=== PATIENT | female | born 1970 | race Caucasian/White ===

== ENCOUNTER 2020-03-12 15:34 | Emergency (ER) | payer SELFPAY ==
[2020-03-12 15:40] VITALS: BP 140/89; PULSE 85; RESP 18; TEMP 37.6; O2SAT 98
--- NOTE | 2020-03-12 15:43 | ED.GENADULT ---
HPI - General Adult General Chief complaint: Dental/Oral Stated complaint: tooth pain Time Seen by Provider: 03/12/20 15:45 Source: patient and RN notes reviewed Mode of arrival: ambulatory Limitations: no limitations History of Present Illness HPI narrative: This is a 50 years old female presents to the office for an evaluation of dental pain since yesterday morning. She admits to bad teeth as result from her methimazole. She does not have a dentist because she lost her job; however she aware of dental school and will look into it. Related Data Home Medications Medication Instructions Recorded Confirmed amitriptyline 03/12/20 amlodipine 03/12/20 methimazole 03/12/20 Allergies Allergy/AdvReac Type Severity Reaction Status Date / Time codeine Allergy Unknown NAUSEA Verified 10/03/18 18:25 Review of Systems Review of Systems: Narrative: CONSTITUTIONAL: Denies fever or feeling ill. Reports has not sleep for the last 32hours due to pain ENT:Reports dental pain (ice cold water helps controlled pain). CARDIOVASCULAR: Denies chest pain RESPIRATORY: Denies dyspnea, cough GASTROINTESTINAL: Denies abdominal pain, nausea, vomiting SKIN: Denies rash MUSCULOSKELETAL: Denies acute back pain NEUROLOGIC: Denies lightheaded All other systems reviewed are negative, except as documented in HPI. [facility] Past Medical History Medical History (Updated 03/12/20 @ 16:00 by ZOHRA Ren) Graves' disease History of anxiety HTN (hypertension) Hx of migraine headaches Surgical History Surgical History Hx of cholecystectomy Comments At time of signature, I agree with nursing past medical, surgical, social and family history. There is no relevant family history pertinent to the presenting complaint. Exam Narrative: Exam Narrative: GENERAL: This is a well-nourished, well-developed patient, in no apparent distress. EYES: Sclera and conjunctivae normal ENT: External ears normal. Nose and lips normal. Airway patent.The tooth in question is very carious and the gum is swollen and tender around it. There is no facial swelling, cervical or submandibular lymphadenopathy. CARDIOVASCULAR: Regular rate and rhythm without murmurs, gallops, or rubs. RESPIRATORY: Clear to auscultation. Breath sounds equal bilaterally. No wheezes, rales, or rhonchi. GASTROINTESTINAL: Abdomen soft, non-tender, nondistended. Bowel sounds are active. No hepato-splenomegaly, or palpable masses. No guarding. SKIN: warm, intact with no suspicious lesions or rash, good texture and turgor. NEURO: awake, alert, and oriented to person, place and time. There were no obvious focal neurologic abnormalities. Course Vital Signs Vital signs: Vital Signs Temperature 99.6 F 03/12/20 15:40 Pulse Rate 85 03/12/20 15:40 Respiratory Rate 18 03/12/20 15:40 Blood Pressure 140/89 03/12/20 15:40 Pulse Oximetry 98 03/12/20 15:40 Temperature 99.6 F 03/12/20 15:40 Pulse Rate 85 03/12/20 15:40 Respiratory Rate 18 03/12/20 15:40 Blood Pressure 140/89 03/12/20 15:40 Pulse Oximetry 98 03/12/20 15:40 Medical Decision Making MDM Narrative Medical decision making narrative: Elevated BP noted: patient is informed that they may have pre-hypertension or hypertension based on a blood pressure reading in the department. I recommend the patient call the primary care provider listed on their discharge instructions or a physician of their choice this week to arrange follow-up for further evaluation of possible pre-hypertension or hypertension within 1-2week. Discharge instructions reviewed with patient, as well as provided in writing per nursing staff. The instructions also include specific and strict return/GO TO THE ER as well as f/u information. All questions have been answered, and the patient deny any further questions with discharge and discharge plan. Differential Diagnosis Di
== END 2020-03-12 16:00 | disposition home or self-care (01) ==
PROVIDERS: Emergency Provider Nurse Practitioner; PCP Family Medicine
DX: K02.9 Dental caries, unspecified (principal); I10 Essential (primary) hypertension
CPT/HCPCS: 99213; G0463

== ENCOUNTER 2021-09-06 15:04 | Emergency (ER) | payer SELFPAY ==
[2021-09-06 15:47] VITALS: BP 133/70; PULSE 85; RESP 18; TEMP 37; O2SAT 94
--- NOTE | 2021-09-06 17:14 | ED.URI ---
HPI - URI/Sore Throat General Chief Complaint: Upper Respiratory Infection Stated Complaint: nausea diarrhea cough sob fever Source: patient and RN notes reviewed Mode of arrival: ambulatory History of Present Illness HPI Narrative: This is a 51-year-old female who presented to urgent care with complaints of diarrhea, shortness of breath, chest congestion, fever of 101 that started on Monday. Patient notes that she took ibuprofen and Tylenol for her fever. The patient denies CP, palpitation, extremity numbness, lightheadedness, dizziness, constipation, diarrhea, chills, or fever. Patient is a smoker she does not have any inhalers at home Related Data Home Medications Medication Instructions Recorded Confirmed amitriptyline 10 mg PO DAILY 03/12/20 09/06/21 amlodipine 10 mg PO DAILY 03/12/20 09/06/21 methimazole 10 mg PO DAILY 03/12/20 09/06/21 Allergies Allergy/AdvReac Type Severity Reaction Status Date / Time codeine Allergy Unknown NAUSEA Verified 10/03/18 18:25 Review of Systems Review of Systems: A 14 organ system Review of Systems was performed and pertinent positives included in the HPI, otherwise remaining ROS is negative. [facility] Past Medical History Medical History Graves' disease History of anxiety HTN (hypertension) Hx of migraine headaches Surgical History Surgical History Hx of cholecystectomy Family History Family History (Updated 09/06/21 @ 17:16 by ADA Jensen) Other Family history non-contributory Exam Narrative: GENERAL: This is a well-nourished, well-developed patient, in no apparent distress. HEAD: normocephalic, atraumatic. EYES: PERRL. Sclera clear/white. Vision is grossly intact. EARS: External ears normal, auditory canals clear and without drainage, TMs normal without perforation. Hearing grossly intact. NOSE: External nose normal with no obvious nasal discharge, nares without redness, no rhinorrhea. THROAT: Mucous membranes moist, posterior pharynx clear. NECK: Neck supple, non-tender without lymphadenopathy, masses or thyromegaly. CARDIOVASCULAR: Regular rate and rhythm without murmurs, gallops, or rubs. RESPIRATORY: Clear to auscultation. Breath sounds equal bilaterally. No wheezes, rales, or rhonchi. GASTROINTESTINAL: Abdomen soft, non-tender, nondistended. Bowel sounds are active. No hepato-splenomegaly, or palpable masses. No guarding. SKIN: warm, intact with no suspicious lesions or rash, good texture and turgor. NEURO: awake, alert, and oriented to person, place and time. There were no obvious focal neurologic abnormalities. Steady gait EXTREMITIES: Normal range of motion. No edema. No calf tenderness. Negative Homans sign bilaterally. BACK: Nontender without deformity or crepitance. No flank tenderness. Course Course Emergency Course: Patient will discharge with albuterol, prednisone, guaifenesin, Flonase, Symbicort Vital Signs Vital signs: Vital Signs Temperature 98.6 F 09/06/21 15:47 Pulse Rate 85 09/06/21 15:47 Respiratory Rate 18 09/06/21 15:47 Blood Pressure 133/70 09/06/21 15:47 Pulse Oximetry 94 09/06/21 15:47 Temperature 98.6 F 09/06/21 15:47 Pulse Rate 85 09/06/21 15:47 Respiratory Rate 18 09/06/21 15:47 Blood Pressure 133/70 09/06/21 15:47 Pulse Oximetry 94 09/06/21 15:47 MDM - URI/Sore Throat Differential Diagnosis Differential diagnosis: Likely upper respiratory infection, sinusitis, viral infection, influenza and pharyngitis Lab Data Labs: Influenza A Screen Negative Reference Range: Negative Influenza B Screen Negative Reference Range: Negative Discharge Plan Discharge Clinical Impression: Viral infection Patient Disposition: Home, Self-Care Cond
== END 2021-09-06 17:31 | disposition home or self-care (01) ==
PROVIDERS: Emergency Provider Nurse Practitioner; PCP Nurse Practitioner Family
DX: B34.9 Viral infection, unspecified (principal); Z20.822 Contact with and (suspected) exposure to COVID-19; E05.00 Thyrotoxicosis with diffuse goiter without thyrotoxic crisis or storm; I10 Essential (primary) hypertension
CPT/HCPCS: 87426; 87804; 99213; C9803; G0463

== ENCOUNTER 2023-01-14 12:22 | Emergency (ER) | payer OTHER, SELFPAY ==
[2023-01-14 12:30] VITALS: BP 150/88; PULSE 106; RESP 18; TEMP 37.1; O2SAT 98
--- NOTE | 2023-01-14 12:42 | ED.URI ---
HPI - URI/Sore Throat General Chief Complaint: Upper Respiratory Infection Stated Complaint: Upper respiratory Time Seen by Provider: 01/14/23 12:42 History of Present Illness HPI Narrative: Patient presents with a cough. Patient states the nonproductive cough denies any shortness of breath no chest pain. Patient states she has a history of bronchitis and feels that she has bronchitis once again. Patient is not taking anything [id number] for her symptoms. Related Data Home Medications Medication Instructions Recorded Confirmed amitriptyline 10 mg tablet 10 mg PO DAILY 03/12/20 01/14/23 amlodipine 10 mg tablet 10 mg PO DAILY 03/12/20 01/14/23 methimazole 10 mg tablet 10 mg PO DAILY 03/12/20 01/14/23 Allergies Allergy/AdvReac Type Severity Reaction Status Date / Time codeine Allergy Unknown NAUSEA Verified 01/14/23 12:39 Review of Systems Review of Systems: CONSTITUTIONAL: Denies chills, or sweats. Reports fever and generalized body aches EYES: Denies visual changes, redness, or discharge. ENT: Denies otalgia. Reports nasal congestion runny nose and sore throat CARDIOVASCULAR: Denies chest pain, palpitations, or edema. RESPIRATORY: Denies dyspnea. Reports occasional cough GASTROINTESTINAL: Denies abdominal pain, nausea, vomiting, or diarrhea. GENITOURINARY: Denies dysuria or hematuria. SKIN: Denies rash or itching. MUSCULOSKELETAL: Denies back pain, joint pain, or myalgia. Reports generalized body aches NEUROLOGIC: Denies headache, numbness, or weakness. PSYCHIATRIC: Denies anxiety or depression. PMFSH Past Medical History Medical History Graves' disease History of anxiety HTN (hypertension) Hx of migraine headaches Surgical History Surgical History Hx of cholecystectomy Family History Family History (Updated 09/06/21 @ 17:16 by ADA Jensen) Other Family history non-contributory Comments At time of signature, agree with nursing past medical, surgical, social and family history. There is no relevant family history pertinent to the presenting complaint Exam Narrative: The patient is a well-developed, well-nourished in no acute distress. SKIN: Skin is warm and dry without erythema, swelling or exudate. There is good turgor. No tenting. HEAD: Atraumatic. Normocephalic. No temporal or scalp tenderness. EYES: Moist and bright. Sclera and conjunctivae normal. No discharge. PERRLA. Extraocular motions intact. Gross visual acuity intact. EARS: Pinna is normal shape and contour. Clear external auditory canals. TM pearly begum with good cone of light, no erythema or suppuration. Bilateral cerumen noted no gross hearing deficit. NOSE: pink, moist mucosa with good air movement. Clear rhinorrhea without nasal flaring. Septum midline. Mouth: moist mucous membranes. THROAT; mild erythema noted to posterior oropharynx with moderate postnasal drainage. Without exudate or ulceration.. Uvula midline. Normal movement of soft palate. NECK: Supple and nontender with full range of motion without discomfort. No meningeal signs. LUNGS: Equal and bilateral breath sounds without wheezes, rales or rhonchi. CHEST: The chest wall is without retractions or use of accessory muscles. HEART: Has a regular rate and rhythm without murmur, gallops, click or rub. ABDOMEN: Soft, nontender with positive active bowel sounds. No rebound tenderness. EXTREMITIES: Without cyanosis, clubbing or edema. Equal 2+ distal pulses and 2 second capillary refill noted. NEUROLOGIC: alert, active, . The patient moves all extremities with normal muscle strength. Normal muscle tone is noted. Normal coordination is noted. NO focal neurological findings noted. Course Course Level of Care: Express Care Visit MDM - URI/Sore Throat MDM Narrative Medical decision making narrative: Please ADRIENNE schedule a followup visit
== END 2023-01-14 12:50 | disposition home or self-care (01) ==
PROVIDERS: Emergency Provider Nurse Practitioner Family; PCP Nurse Practitioner Family
DX: J40 Bronchitis, not specified as acute or chronic (principal); J06.9 Acute upper respiratory infection, unspecified; I10 Essential (primary) hypertension
CPT/HCPCS: 99213; G0463

== ENCOUNTER 2024-06-21 08:42 | Emergency (ER) | payer OTHER, SELFPAY ==
[2024-06-21 08:46] VITALS: BP 128/83; PULSE 78; RESP 20; TEMP 36.6; O2SAT 98
--- NOTE | 2024-06-21 08:56 | ED.BACK ---
HPI - Back Pain/Injury General Chief Complaint: Back Pain/Injury Stated Complaint: Back pain Time Seen by Provider: 06/21/24 08:57 Source: patient and RN notes reviewed Mode of arrival: ambulatory Limitations: no limitations History of Present Illness HPI Narrative: 54-year-old female presents with concern for left low back pain. Reports 2 weeks ago she was carrying heavy item and she twisted consult a sudden left low back pain. Reports since then has been getting worse. She reports her bed is soft and makes pain worse. Reports she can find a position a relative comfort after she has taken ibuprofen but certain movements and positions make it worse. She denies bowel or bladder dysfunction, perianal anesthesia, weakness in any extremity, abdominal pain, fever. She denies rash, bruising, redness, warmth. She denies dysuria, frequency, urgency. She has an appointment with her primary care provider on Monday for further evaluation. She reports she has been working a lot and feels that some time off would help. She has been taking Tylenol combined with ibuprofen with very mild relief MD elicited complaint: back pain Related Data Home Medications Medication Instructions Recorded Confirmed amitriptyline 10 mg tablet 10 mg PO DAILY 03/12/20 06/21/24 amlodipine 10 mg tablet 10 mg PO DAILY 03/12/20 06/21/24 methimazole 10 mg tablet 10 mg PO DAILY 03/12/20 06/21/24 Allergies Allergy/AdvReac Type Severity Reaction Status Date / Time codeine Allergy Unknown NAUSEA Verified 06/21/24 08:54 Review of Systems Review of Systems: CONSTITUTIONAL: Denies malaise, chills, sweats, or fever. CARDIOVASCULAR: Denies chest pain, palpitations, or edema. RESPIRATORY: Denies cough or dyspnea. GASTROINTESTINAL: Denies abdominal pain, nausea, vomiting, diarrhea, loss of bowel function GENITOURINARY: Denies dysuria, hematuria, frequency, loss of bladder function. SKIN: Denies rash or itching. MUSCULOSKELETAL: Reports left low back pain NEUROLOGIC: Denies numbness, weakness, or headache. All systems reviewed & are unremarkable except as noted in HPI and below PMFSH Past Medical History Medical History Graves' disease History of anxiety HTN (hypertension) Hx of migraine headaches Surgical History Surgical History Hx of cholecystectomy Family History Family History (Updated 09/06/21 @ 17:16 by ADA Jensen) Other Family history non-contributory Comments At time of signature, agree with nursing past medical, surgical, social and family history. There is no relevant family history pertinent to the presenting complaint Exam Narrative: GENERAL: Well-appearing, well-nourished, and in no acute distress. HEAD: Normocephalic, atraumatic. EYES: PERRLA and EOMI. NECK: Supple. No lymphadenopathy. CHEST: Clear to auscultation. No respiratory distress. HEART: Regular rate and rhythm. Distal pulses palpable and equal, cap refill <3 seconds ABDOMEN: Soft, nontender, nondistended, normal active bowel sounds, no palpable or pulsatile masses. No CVA tenderness MUSCULOSKELETAL: Normal range of motion and strength in all extremities; 5/5 strength with hip flexion and extension, dorsiflexion and extension, knee flexion and extension, plantar flexion and extension. Normal sensation in dermatomal distributions with sensitivity to light touch and pain. No midline back tenderness to palpation. No paraspinal tenderness. Transfers from lying to sitting to standing. SKIN: Warm, dry, no rash. No ecchymosis, erythema, open wounds to back. NEURO: No focal deficits. Alert and oriented x3. Normal gait. PSYCH: Normal mood and affect Course Course Emergency Course: Patient is aware of diagnosis, understands and agrees to treatment plan. Anticipatory guidance given. Patient agrees to follow-up as directed and is aware of reasons
== END 2024-06-21 09:20 | disposition home or self-care (01) ==
PROVIDERS: Emergency Provider Nurse Practitioner; PCP Nurse Practitioner Family
DX: M54.50 Low back pain, unspecified (principal); E05.00 Thyrotoxicosis with diffuse goiter without thyrotoxic crisis or storm; I10 Essential (primary) hypertension
CPT/HCPCS: 99213; G0463